=== PATIENT | female | born 1955 | race African-American/Black ===

== ENCOUNTER 2025-01-31 10:15 | Emergency (ER) | payer BC, OTHER ==
[~2025-01-31] VITALS: Ht 162.6 cm; Wt 91.0 kg
[~2025-01-31 10:15] MED LIST: ASPI-1497 PO; ATOR40TA70 PO; HYDR25TA PO; IBUP-2029 PO; LOSA100T33 PO
[2025-01-31 10:34] VITALS: O2SAT 98
[2025-01-31] MEDS: ONDANSETRON 4MG ODT PO ONE (11:13)
[2025-01-31] MEDS: ACETAMINOPHEN 500MG TABLET PO ONE (11:14)
[2025-01-31 11:23] LABS: INR 1.0
[2025-01-31 11:24] LABS: BASOPHILS % 1.1 % (0.0-2.0); EOSINOPHILS % 2.1 % (0.0-5.0); HEMATOCRIT. 38.0 % (36.0-48.0); HEMOGLOBIN. 12.6 g/dL (12.0-16.0); LYMPHOCYTES % 29.5 % (20.0-50.0); MEAN PLATELET VOLUME 8.7 fl (7.4-10.4); MONOCYTES % 6.3 % (2.0-8.0); NEUTROPHILS % 61.0 % (40.0-76.0); PLATELET 227 x1000/uL (130-400); RED BLOOD CELL COUNT 4.59 mill/uL (4.2-5.4); RED CELL DISTRIBUTION WIDTH 15.3 % (11.6-14.6)
[2025-01-31 11:29] LABS: CREATININE 1.1 mg/dL (0.6-1.0)
[2025-01-31 11:30] LABS: ETHANOL BLOOD < 10 mg/dL (<10); UREA NITROGEN BLOOD 13 mg/dL (9-23)
[2025-01-31 11:31] LABS: ASPARTATE AMINOTRANSFERASE 12 IU/L (<34); TROPONIN I HIGH SENSITIVITY 5 ng/L (3.0-34)
[2025-01-31 11:32] LABS: BILIRUBIN DIRECT 0.1 mg/dL (<=3.0); BILIRUBIN TOTAL 0.6 mg/dL (0.1-1.0); PROTEIN TOTAL 7.5 g/dL (6.0-8.3)
[2025-01-31] MEDS: MORPHINE SULFATE 4 MG/ML INJ (FOR IV/IM USE) IM ONE (12:38)
[2025-01-31 13:47] LABS: TROPONIN I HIGH SENSITIVITY 6 ng/L (3.0-34)
[2025-01-31 15:30] LABS: CLARITY URINE CLEAR (CLEAR); COLOR URINE YELLOW (YELLOW); GLUCOSE URINE NEGATIVE (NEGATIVE); KETONES URINE NEGATIVE (NEGATIVE); LEUKOCYTE ESTERASE URINE NEGATIVE (NEGATIVE); NITRITE URINE NEGATIVE (NEGATIVE); OCCULT BLOOD URINE NEGATIVE (NEGATIVE); PH URINE 5.5 (4.5-8.0); PROTEIN URINE NEGATIVE (NEGATIVE); SPECIFIC GRAVITY URINE 1.017 (1.005-1.030); UROBILINOGEN URINE 0.2 E.U./dL (0.2-1.0)
[2025-01-31] MEDS: POTASSIUM CHLORIDE 20MEQ TABLET SR PO SCH (15:30)
[2025-01-31 16:30] LABS: *AMPHETAMINES SCREEN URINE NEGATIVE (NEGATIVE); *BARBITURATES SCREEN URINE NEGATIVE (NEGATIVE); *BENZODIAZEPINES SCREEN URINE NEGATIVE (NEGATIVE); *COCAINE SCREEN URINE NEGATIVE (NEGATIVE); METHADONE URINE SCREEN NEGATIVE (NEGATIVE); OPIATES URINE SCREEN PRESUMPTIVE POSITIVE (NEGATIVE); PHENCYCLIDINE URINE SCREEN NEGATIVE (NEGATIVE)
[2025-01-31 16:31] LABS: CANNABINOID URINE SCREEN NEGATIVE (NEGATIVE); ECSTASY MDMA SCREEN URINE NEGATIVE (NEGATIVE)
[2025-01-31] MEDS ORDERED: TRAM50TA3 MT (16:58)
[2025-01-31 18:05] VITALS: BP 112/85; PULSE 80; RESP 19; TEMP 36.6; O2SAT 98
== END 2025-01-31 18:19 | disposition home or self-care (01) ==
LOC: ER 10:38 → CANBEDREQ 17:19 → ER 18:19
DX: R10.31 Right lower quadrant pain (principal); D25.9 Leiomyoma of uterus, unspecified; I10 Essential (primary) hypertension; Z79.899 Other long term (current) drug therapy; Z79.82 Long term (current) use of aspirin
CPT/HCPCS: 80076; 80305; 80048; 81003; 80320; 83690; 85025; 85610; 84484; 36415; 74176; 93005; 96372; 99285; Q0162; J2270; G0480